=== PATIENT | male | born 1960 | race Caucasian/White ===

== ENCOUNTER 2019-01-03 07:50 | Day surgery (SDC) | payer BC ==
[~2019-01-03 07:50] MED LIST: Lidocaine 2% 5 ML SDV ONE; Propofol 200 MG/20 ML SDV ONE
[2019-01-03] MEDS ORDERED: ceFAZolin 1 GM Vial ONE (08:00)
[2019-01-03] MEDS ORDERED: Lactated Ringers 1,000 ML IV SCH ×2 (08:00→10:00)
--- NOTE | 2019-01-03 08:49 | PCM.PREANE ---
Preanesthetic Assessment - Anesthesia/Transfusion/Family Hx Anesthesia History: Prior Anesthesia Without Reaction Family History of Anesthesia Reaction: No Transfusion History: No Prior Transfusion(s) - Review of Systems General: No Symptoms Pulmonary: No Symptoms Cardiovascular: No Symptoms Gastrointestinal: No Symptoms Neurological: No Symptoms Other: Reports: None - Physical Assessment Vital Signs: Last Vital Signs Temp 97.5 F 01/03/19 08:03 Pulse 88 01/03/19 08:03 Resp 15 01/03/19 08:03 BP 142/92 H 01/03/19 08:03 Pulse Ox 96 01/03/19 08:03 Height: 5 ft 6 in Weight: 91.172 kg ASA Class: 2 Mental Status: Alert & Oriented x3 Airway Class: Mallampati = 2 Dentition: Reports: Normal Dentition ROM/Head Extension: Full Lungs: Clear to Auscultation, Normal Respiratory Effort Cardiovascular: Regular Rate, Regular Rhythm - Allergies Allergies/Adverse Reactions: Allergies Allergy/AdvReac Type Severity Reaction Status Date / Time No Known Allergies Allergy Verified 12/31/18 12:18 - Blood Blood Available: No - Anesthesia Plan Pre-Op Medication Ordered: None - Acknowledgements Anesthesia Type Planned: General Anesthesia Pt an Appropriate Candidate for the Planned Anesthesia: Yes Alternatives and Risks of Anesthesia Discussed w Pt/Guardian: Yes Pt/Guardian Understands and Agrees with Anesthesia Plan: Yes Additional Comments: rose prob list: htn, stopped lisinopril 36 hr ago PLAN: tiva PreAnesthesia Questionnaire HEENT History: Reports: Other (See Below) Other HEENT History: uses reading glasses Cardiovascular History: Reports: Hypertension Gastrointestinal History: Reports: Colon Polyp Musculoskeletal History: Reports: Fracture Other Musculoskeletal History: hx of fx right leg Endocrine/Metabolic History: Reports: Obesity/BMI 30+ - Past Surgical History GI Surgical History: Reports: Colonoscopy, Hernia, Inguinal Musculoskeletal Surgical History: Reports: Other (See Below) Other Musculoskeletal Surgeries/Procedures:: excision of lipoma from shoulder - SUBSTANCE USE Smoking Status *Q: Former Smoker Tobacco Use Within Last Twelve Months: No Recreational Drug Use History: No - HOME MEDS Home Medications: Home Meds Lisinopril 10 mg PO BEDTIME 12/31/18 [History] Sildenafil Citrate 50 mg PO ASDIRECTED PRN 12/31/18 [History] - CURRENT (IN HOUSE) MEDS Current Meds: Current Medications Lactated Ringer's (Ringers, Lactated) 1,000 mls @ 125 mls/hr IV ASDIRECTED BLANCO Last Admin: 01/03/19 08:14 Dose: 125 mls/hr Discontinued Medications Cefazolin Sodium (Ancef) Confirm Administered Dose 1 gm .ROUTE .STK-MED ONE Stop: 01/03/19 08:01 Lidocaine (Xylocaine-Mpf 2%) Confirm Administered Dose 5 ml .ROUTE .STK-MED ONE Stop: 01/03/19 07:39 Propofol (Diprivan 20 Ml) Confirm Administered Dose 400 mg .ROUTE .STK-MED ONE Stop: 01/03/19 07:40
--- NOTE | 2019-01-03 10:01 | PCM.OPNOTE ---
- General Post-Op/Procedure Note Date of Surgery/Procedure: 01/03/19 Operative Procedure(s): Colonoscopy with cold ascending colon and rectal polypectomies Pre Op Diagnosis: Personal history of colon polyps. Family history of colon cancer. Post-Op Diagnosis: Ascending colon and rectal polyps. Sigmoid diverticulosis. Anesthesia Technique: MAC (ASA II) Primary Surgeon: Rodney De Santiago Condition: Good Free Text/Narrative:: DICTATION [id number] CPT CODE [id number]
--- NOTE | 2019-01-03 10:08 | PCM.POSTAN ---
POST ANESTHESIA ASSESSMENT - MENTAL STATUS Mental Status: Alert - VITAL SIGNS Vital Signs: Last Vital Signs Temp 36.4 C 01/03/19 08:03 Pulse 71 01/03/19 10:05 Resp 14 01/03/19 10:05 BP 139/82 01/03/19 10:05 Pulse Ox 96 01/03/19 10:05 - RESPIRATORY Respiratory Status: Respiratory Rate WNL - CARDIOVASCULAR CV Status: Pulse Rate WNL - GASTROINTESTINAL GI Status: No Symptoms - PAIN Pain Score: 0 - POST OP HYDRATION Hydration Status: Adequate & Stable - OBSERVATIONS Free Text/Narrative:: Doing well. Ready for transfer to .
--- NOTE | 2019-01-03 10:26 | PCM48HPAN ---
Post Anesthesia Note - EVALUATION WITHIN 48HRS OF ANESTHETIC Vital Signs in Normal Range: Yes Patient Participated in Evaluation: Yes Respiratory Function Stable: Yes Airway Patent: Yes Cardiovascular Function Stable: Yes Hydration Status Stable: Yes Pain Control Satisfactory: Yes Nausea and Vomiting Control Satisfactory: Yes Mental Status Recovered: Yes Vital Signs: Last Vital Signs Temp 97.5 F 01/03/19 08:03 Pulse 66 01/03/19 10:10 Resp 14 01/03/19 10:10 BP 141/84 H 01/03/19 10:10 Pulse Ox 98 01/03/19 10:10
[2019-01-03] MEDS ORDERED: Propofol 200 MG/20 ML SDV ONE (10:51)
--- NOTE | 2019-01-03 13:31 | OR ---
SURGEON: Rodney De Santiago M.D. DATE OF PROCEDURE: 01/03/2019 OPERATION PERFORMED: Colonoscopy with cold ascending colon and rectal polypectomies. PRIMARY SURGEON: Rodney De Santiago. ANESTHESIA: MAC. ASA CLASSIFICATION: II. PREOPERATIVE DIAGNOSES: 1. Personal history of colon polyps. 2. Family history of colon cancer. POSTOPERATIVE DIAGNOSES: 1. Ascending colon polyp. 2. Rectal polyp. 3. Mild sigmoid diverticulosis. DESCRIPTION OF PROCEDURE: The patient was taken to the endoscopy room and positioned on the endoscopy table in the left lateral decubitus position. Time-out was called for appropriate identification of the patient and procedure. Monitored anesthesia care was provided. The colonoscope was inserted into the rectum and advanced with minimal difficulty to the cecum where the colonoscope was retroflexed to visualize the ascending colon from below. The colonoscope was then straightened and slowly withdrawn. I did attempt to cannulate the ileocecal valve, but could not maneuver the scope through that. One polyp was encountered in the ascending colon and removed with cold biopsy forceps. The remainder of the ascending colon, hepatic flexure, transverse colon, splenic flexure, and descending colon showed no tumors, polyps, diverticula, or angiodysplastic changes. A few scattered diverticula were noted in the sigmoid colon. No stricture, spasm, or bleeding was noted. No polyps were encountered. A second polyp was encountered in the proximal rectum and removed with cold biopsy forceps. The colonoscope was withdrawn to the distal rectum and retroflexed to visualize the anal orifice from above. No tumors, polyps, or acute hemorrhoidal changes were noted. The colonoscope was then straightened, the rectum aspirated, and the colonoscope removed. The patient tolerated the procedure well and was taken to recovery room in stable condition. BEE KOHLI /[id number]
== END 2019-01-03 10:36 | disposition home or self-care (01) ==
LOC: MW.SDS 07:50
PROVIDERS: ATTEND Surgery
DX: Z12.11 Encounter for screening for malignant neoplasm of colon (principal); D12.8 Benign neoplasm of rectum; K57.30 Diverticulosis of large intestine without perforation or abscess without bleeding; I10 Essential (primary) hypertension; Z86.010 Personal history of colon polyps; Z80.0 Family history of malignant neoplasm of digestive organs; Z79.899 Other long term (current) drug therapy
CPT/HCPCS: 45380; J2001; J2704; J7120; 88305; J0690

== ENCOUNTER 2021-06-09 13:36 | Emergency (ER) | payer BC ==
[2021-06-09] MEDS ORDERED: Diphtheria,Pertussis(Acell),Tetanus Vaccine 0.5 ML Syringe IM ONE (14:15)
[2021-06-09] MEDS ORDERED: Lidocaine 1% 5 ML VIAL INJECT ONE (14:15)
== END 2021-06-09 14:39 | disposition home or self-care (01) ==
LOC: MW.ED 13:36
DX: S61.512A Laceration without foreign body of left wrist, initial encounter (principal); I10 Essential (primary) hypertension; E66.9 Obesity, unspecified; Z68.32 Body mass index [BMI] 32.0-32.9, adult; Z79.899 Other long term (current) drug therapy; Z23 Encounter for immunization; W26.0XXA Contact with knife, initial encounter
CPT/HCPCS: 12001; 90471; 90715; 99282; 99282-25

== ENCOUNTER 2023-05-23 09:58 | Emergency (ER) | payer OTHER, BC | END 2023-05-23 12:41 | disposition home or self-care (01) | LOC: MW.ED 09:58 | DX: S86.912A Strain of unspecified muscle(s) and tendon(s) at lower leg level, left leg, initial encounter (principal); I10 Essential (primary) hypertension; E66.9 Obesity, unspecified; Z68.31 Body mass index [BMI] 31.0-31.9, adult; Z79.899 Other long term (current) drug therapy; X50.1XXA Overexertion from prolonged static or awkward postures, initial encounter | CPT/HCPCS: 93971-26-LT; 93971-LT; 99283 ==